=== PATIENT | male | born 1970 | race Caucasian/White ===

== ENCOUNTER 2023-06-19 13:06 | Outpatient (REF) | payer OTHER, SELFPAY ==
[2023-06-19 15:57] LABS: MANUAL DIFF FLAG NO
[2023-06-19 16:11] LABS: Basophils Percent Auto 0.4 % (0-2); Eosinophils Absolute Auto 0.1 X10*3/uL (0.0-0.4); Eosinophils Percent Auto 0.8 % (0-4); Hematocrit 44.8 % (42.0-52.0); Hemoglobin 14.2 g/dl (14.0-18.0); Imm Gran Abs Auto 0.04 X10*3/uL (0.00-0.03); Imm Gran Pct Auto 0.6 % (0.0-0.4); Lymphocytes Absolute Auto 1.4 X10*3/uL (1.2-4.9); Lymphocytes Percent Auto 19.9 % (20-40); Mean Corpuscular HGB Conc 31.7 g/dl (31.0-36.0); Mean Corpuscular Hemoglobin 29.8 pg (27.0-33.0); Mean Corpuscular Volume 93.9 fL (80.0-98.0); Mean Platelet Volume 10.7 fL (9.4-12.4); Monocytes Absolute Auto 0.6 X10*3/uL (0.1-1.2); Monocytes Percent Auto 8.5 % (2-11); Neutrophils Percent Auto 69.8 % (45-73); Platelet Count 238 X10*3/uL (160-400); Red Blood Count 4.77 X10*6/uL (4.60-5.80); Red Cell Distribution Width 14.3 % (11.0-16.0); White Blood Count 7.1 X10*3/uL (4.8-10.8)
[2023-06-19 16:21] LABS: Estimated Average Glucose 128 mg/dL; Hemoglobin A1c % 6.1 % (<6.0)
[2023-06-19 16:27] LABS: Rheumatoid Factor < 13.0 IU/mL (<15.0)
[2023-06-19 16:32] LABS: Alanine Aminotransferase 45 U/L (0-40); Albumin Level 4.2 g/dL (3.5-5.0); Alkaline Phosphatase 88 U/L (39-117); Anion Gap 14 (12-20); Aspartate Amino Transferase 34 U/L (5-37); Bilirubin Direct 0.2 mg/dL (0.0-0.5); Bilirubin Total 0.5 mg/dL (0.0-1.0); Blood Urea Nitrogen 14 mg/dL (9-16); C Reactive Protein 1.09 mg/dL (< or = 0.50); Calcium 9.9 mg/dL (8.4-10.2); Carbon Dioxide 24 mmol/L (22-29); Chloride 104 mmol/L (96-108); Cholesterol 218 mg/dL (<200); Estimated Glomerular Filt Rate > 60; Glucose Random 110 mg/dL (60-115); HDL Cholesterol 44 mg/dL (>40); LDL Cholesterol Calculated 145 mg/dL (<100); Sodium 138 mmol/L (135-145); Total Protein 7.6 g/dL (6.5-8.0); Triglycerides 145 mg/dL (<150)
[2023-06-19 16:41] LABS: Free T4 (Free Thyroxine) 0.91 ng/dL (0.71-1.85); Thyroid Stimulating Hormone 1.78 uIU/mL (0.32-4.0); Vitamin D 25-OH Total 36.2 ng/mL (>30)
[2023-06-19 17:04] LABS: Erythrocyte Sedimentation Rate 14 MM/HR (0-15)
[2023-06-19 18:36] LABS: CT PCR NOT DETECTED (Not Detect.); NG PCR NOT DETECTED (Not Detect.)
[2023-06-22 07:55] LABS: Syphilis Screen Nonreactive (Nonreactive)
[2023-06-22 08:33] LABS: Hepatitis A Antibody IgM 0.18 Index (0-0.79); ~Hepatitis A Antibody IgM Nonreactive (Nonreactive)
[2023-06-22 08:34] LABS: HBS Num1 0.21 mIU/mL (0-7.99); HBsAGNum1 0.29 S/CO (0.00-0.99); HIV AB/AG Nonreactive (Nonreactive); HIV Num 1 0.05 S/CO (0.00-0.99); Hepatitis B Surface Antigen Negative (Negative); ~HepC Num1 0.08 S/CO (0.00-0.79); ~Hepatitis B Surface Antibody NONREACTIVE (Nonreactive); ~Hepatitis C Antibody Nonreactive (Nonreactive)
[2023-06-22 15:23] LABS: Anti Nuclear Antibody Screen NEGATIVE (NEGATIVE)
[2023-06-23 09:13] LABS: Lyme Abs Screen <0.90 index
== END 2023-06-19 13:07 | disposition home or self-care (01) ==
LOC: HO.HHCL 13:06
PROVIDERS: Visit Provider Family Medicine
DX: Z00.00 Encounter for general adult medical examination without abnormal findings (principal); M62.838 Other muscle spasm; Z20.2 Contact with and (suspected) exposure to infections with a predominantly sexual mode of transmission; F50.9 Eating disorder, unspecified; J45.20 Mild intermittent asthma, uncomplicated; C67.9 Malignant neoplasm of bladder, unspecified
CPT/HCPCS: 0353U; 80048; 80061; 80076; 82306; 82550; 83036; 84439; 84443; 85025; 85652; 86038; 86140; 86431; 86617; 86618; 86706; 86709; 86780; 86803; 87340; 87389

== ENCOUNTER 2023-08-05 12:02 | Outpatient (REF) | payer OTHER, SELFPAY ==
[2023-08-05 14:08] LABS: Alanine Aminotransferase 40 U/L (0-40); Albumin Level 4.1 g/dL (3.5-5.0); Alkaline Phosphatase 87 U/L (39-117); Aspartate Amino Transferase 29 U/L (5-37); Bilirubin Direct 0.1 mg/dL (0.0-0.5); Bilirubin Total 0.4 mg/dL (0.0-1.0); Total Protein 7.5 g/dL (6.5-8.0)
== END 2023-08-05 12:03 | disposition home or self-care (01) ==
LOC: HO.HHCL 12:02
PROVIDERS: Visit Provider Family Medicine
DX: R74.8 Abnormal levels of other serum enzymes (principal)
CPT/HCPCS: 36415; 80076; 82550

== ENCOUNTER 2023-08-24 07:13 | Outpatient (REF) | payer OTHER, SELFPAY ==
--- NOTE | ~2023-08-24 | CT_ITS ---
EXAMINATION: CT HEAD WITHOUT CONTRAST CLINICAL INFORMATION: Off balance sensation. COMPARISON: None. TECHNIQUE: Contiguous axial imaging was performed from the skullbase to vertex without intravenous administration of contrast. This CT examination was performed using dose optimization techniques as appropriate, variously including the following: *Automated exposure control *Adjustment of mA and/or kV according to patient size (this includes techniques or standardized protocols for targeted exams where dose is matched to indication/reason for exam; i.e. extremities or head) *Use of iterative reconstruction technique DLP: 1251 mGy-cm. FINDINGS: There is no evidence of acute intracranial hemorrhage or territorial infarction. No abnormal mass effect or midline shift is seen. Sharp to white matter differentiation is well preserved. No extra-axial fluid collections are identified. The ventricles are normal in size. There is no abnormal attenuation within the brain parenchyma. The osseous structures and soft tissues are normal. There is a mild amount of fluid in the dependent left mastoid air cells. The right mastoid air cells are well aerated. The paranasal sinuses are relatively clear. CT/CT head/brain wo IV con IMPRESSION: No acute intracranial pathology.
== END 2023-08-24 07:14 | disposition home or self-care (01) ==
LOC: HO.CT 07:13
PROVIDERS: PCP Family Medicine; Visit Provider Family Medicine
DX: R29.898 Other symptoms and signs involving the musculoskeletal system (principal)
CPT/HCPCS: 70450

== ENCOUNTER 2023-08-27 09:20 | Outpatient (REF) | payer OTHER, SELFPAY | END 2023-08-27 09:21 | disposition home or self-care (01) | LOC: HO.NEURO 09:20 | PROVIDERS: PCP Family Medicine; Visit Provider Family Medicine | DX: R29.898 Other symptoms and signs involving the musculoskeletal system (principal) | CPT/HCPCS: 95886; 95911 ==

== ENCOUNTER → 2023-09-22 10:30 | Outpatient (REF) | payer OTHER, SELFPAY | LOC: HO.SL 10:30 | PROVIDERS: Visit Provider Family Medicine | DX: G47.33 Obstructive sleep apnea (adult) (pediatric) (principal) | CPT/HCPCS: 95806 ==

== ENCOUNTER → 2023-09-22 19:00 | Outpatient (BNV) | payer OTHER, SELFPAY | PROVIDERS: Visit Provider Internal Medicine | DX: G47.33 Obstructive sleep apnea (adult) (pediatric) (principal) | CPT/HCPCS: 95806 ==

== ENCOUNTER → 2023-10-23 19:30 | Outpatient (REF) | payer OTHER, SELFPAY | LOC: HO.SL 19:30 | PROVIDERS: PCP Family Medicine; Visit Provider Family Medicine | DX: Z13.89 Encounter for screening for other disorder (principal) ==